=== PATIENT | male | born 1985 | race Caucasian/White ===

== ENCOUNTER 2016-11-14 14:53 | Emergency (ER) | payer SELFPAY ==
--- NOTE | 2016-11-14 15:31 | ED NURSING NOTES ---
Clinical Report - Nurses [facility] [address] [place] [address] 11/14/2016 14:57 Patient: LYNDA GRAY TRIAGE Triage time 15:Nov 14 2016. Acuity: LEVEL 5. Chief Complaint: RIGHT EAR PAIN and LEFT EAR PAIN and SINUS CONGESTION. --15:08 Demetrius February RPorterNPorter 15:06 11/14/16. BP: 120/74. HR: 96. RR: 16. O2 saturation: 97%. Temp: 98.6 F. Pain level now: 01/17. --15: Demetrius Sheree RSd. Weight: 77.1 kg stated. Height/Length: 70 inches Per Patient. BMI: 24.4. --15: Demetrius ShereeKenya. Medications None. --15: Demetrius ShereeKenya. Allergies No Known Drug Allergy. --15: Demetrius Sheree RSd. History Arrived by private vehicle. Historian: patient. Onset. (weeks). ( Had 1 day relief in the middle of all symptoms but still constant). SOCIAL HX: Current every day heavy tobacco smoker (cigarette)- less than 1 pack per day. Occasional alcohol use. History of drug use: marijuana. ABUSE ASSESSMENT: No report of abuse. --15: Demetrius Sheree RPorterN. ADDITIONAL SURGERIES: no known surgeries. Interventions ID band on patient. To treatment room. --15:08 Demetrius Sheree RPorterN. PHYSICAL ASSESSMENT Ambulatory to room. GENERAL / NEURO / PSYCH: Alert. Acute distress is noted. Appears in pain. HEENT: No facial asymmetry noted. Pupils equal, round and reactive to light. EOM intact. Erythema and pain upon movement of the right auricle; cerumen and cerumen impaction present in the right external auditory canal. Erythema and pain upon movement of the left auricle; cerumen present in the left external auditory canal. RESPIRATORY: Respirations not labored. CVS: Capillary refill less than 2 seconds. SKIN: Skin is warm and dry. --15:10 Sheree Romo R.N. NURSING PROGRESS NOTES Head of bed elevated. Reassurance given. Two patient identifiers checked. Call light placed in reach. Side rails up x 1. Bed placed in lowest position. Brakes of bed on. --15:10 Sheree Romo R.N. Patient ready for evaluation- ED physician notified. --15:11 Sheree Romo R.N. DISPOSITION / DISCHARGE Departure time: 1543 om. Condition at departure: unchanged and stable. No learning barriers present. Discharge instructions provided and reviewed with the patient. Reviewed medication(s). Patient verbalized understanding. Written instructions provided in Japanese. The patient was discharged home. He left the Emergency Department ambulatory and via private vehicle. Patient driving. --15:43 Sheree Romo R.N. 15:41 11/14/16. BP: 116/71. HR: 88. RR: 16. O2 saturation: 97%. Temp: 98.5 F. Pain level now: 03/19. --15:43 Sheree Romo R.N. Locked/Released at 11/14/2016 16:48 by Sheree Romo R.N.
--- NOTE | 2016-11-14 15:31 | ED NURSING NOTES ---
Clinical Report - Nurses [facility] [address] [place] [address] 11/14/2016 14:57 Patient: LYNDA GRAY TRIAGE Triage time 15:Nov 14 2016. Acuity: LEVEL 5. Chief Complaint: RIGHT EAR PAIN and LEFT EAR PAIN and SINUS CONGESTION. --15:08 Demetrius February RPorterNPorter 15:06 11/14/16. BP: 120/74. HR: 96. RR: 16. O2 saturation: 97%. Temp: 98.6 F. Pain level now: 01/17. --15: Demetrius Sheree RSd. Weight: 77.1 kg stated. Height/Length: 70 inches Per Patient. BMI: 24.4. --15: Demetrius ShereeKenya. Medications None. --15: Demetrius ShereeKenya. Allergies No Known Drug Allergy. --15: Demetrius Hseree RSd. History Arrived by private vehicle. Historian: patient. Onset. (weeks). ( Had 1 day relief in the middle of all symptoms but still constant). SOCIAL HX: Current every day heavy tobacco smoker (cigarette)- less than 1 pack per day. Occasional alcohol use. History of drug use: marijuana. ABUSE ASSESSMENT: No report of abuse. --15: Demetrius Sheree RPorterN. ADDITIONAL SURGERIES: no known surgeries. Interventions ID band on patient. To treatment room. --15:08 Demetrius Sheree RPorterN. PHYSICAL ASSESSMENT Ambulatory to room. GENERAL / NEURO / PSYCH: Alert. Acute distress is noted. Appears in pain. HEENT: No facial asymmetry noted. Pupils equal, round and reactive to light. EOM intact. Erythema and pain upon movement of the right auricle; cerumen and cerumen impaction present in the right external auditory canal. Erythema and pain upon movement of the left auricle; cerumen present in the left external auditory canal. RESPIRATORY: Respirations not labored. CVS: Capillary refill less than 2 seconds. SKIN: Skin is warm and dry. --15:10 Sheree Romo R.N. NURSING PROGRESS NOTES Head of bed elevated. Reassurance given. Two patient identifiers checked. Call light placed in reach. Side rails up x 1. Bed placed in lowest position. Brakes of bed on. --15:10 Sheree Romo R.N. Patient ready for evaluation- ED physician notified. --15:11 Sheree Romo R.N. DISPOSITION / DISCHARGE Departure time: 1543 om. Condition at departure: unchanged and stable. No learning barriers present. Discharge instructions provided and reviewed with the patient. Reviewed medication(s). Patient verbalized understanding. Written instructions provided in Mozambican. The patient was discharged home. He left the Emergency Department ambulatory and via private vehicle. Patient driving. --15:43 Sheree Romo R.N. 15:41 11/14/16. BP: 116/71. HR: 88. RR: 16. O2 saturation: 97%. Temp: 98.5 F. Pain level now: 03/19. --15:43 Sheree Romo R.N. Locked/Released at 11/14/2016 16:48 by Sheree Romo R.N.
--- NOTE | 2016-11-14 15:31 | ED CLINICAL REPORT ---
Clinical Report - Physicians/Mid Levels [facility] [address] [place] [address] 11/14/2016 14:57 Patient: LYNDA GRAY Time Seen: 15:07; upon arrival, initial patient contact, initial documentation, patient care assumed. Arrived- By private vehicle. Historian- patient. HISTORY OF PRESENT ILLNESS Chief Complaint: EARACHE. Modifying factors. Not worsened by anything. Not relieved by anything. This started about 2 weeks ago and is still present. Location- left ear. The pain is described as moderate. The patient has had moderate left ear pain. No nasal discharge or congestion, complaint of foreign body in the ear, ear trauma or recent barotrauma. No tinnitus or sore throat. (thought L ear was clogged with wax, so was cleaning it out with qtip). Similar symptoms previously: None. Recent medical care: Not recently seen/assessed. REVIEW OF SYSTEMS No fever. All systems otherwise negative, except as recorded above. PAST HISTORY Negative. SOCIAL HISTORY Heavy tobacco smoker. Occasional alcohol use. History of occasional drug use. Not exposed to second-hand smoke at home. No recent travel. Is a local resident. FAMILY HISTORY Negative. ADDITIONAL NOTES The nursing notes have been reviewed with agreement regarding the chief complaint, HPI, ROS, PMH and patient medications and allergies. PHYSICAL EXAM Vital Signs: 11/14/2016 15:06 BP: 120/74. HR: 96. RR: 16. O2 saturation: 97%. Temp: 98.6 F. Pain level now: 3/10. Have been reviewed as normal and appear to be correct. Appearance: Alert. No acute distress. Eyes: Eyes normal inspection. Nose: Nose normal. Ear (right): Right ear normal. Right tympanic membrane normal. Ear (left): There is mild erythema of the tympanic membrane. Left tympanic membrane abnormal. Left ear normal. Throat: Pharynx normal. Neck: Normal inspection. Neck supple. Back: Normal inspection. Skin: Skin warm and dry. Normal skin color. No rash. Normal skin turgor. Extremities: Extremities exhibit normal ROM. No lower extremity edema. Neuro: Oriented X 3. No motor deficit. No sensory deficit. PROGRESS AND PROCEDURES Patient counseled in person regarding the patient's stable condition and diagnosis. 15:31. Differential Diagnosis: Other possible considerations: aoe, aom, fb, cerumen impaction, perforated tm. Above considerations are based on history and physical exam. Differential diagnosis was discussed with patient. Disposition: Discharged home in good and improved condition (15:31). Condition: good and stable. CLINICAL IMPRESSION Acute suppurative left otitis media. No serous left otitis media. No perforation of left tympanic membrane. INSTRUCTIONS Warnings: GENERAL WARNINGS: Return or contact your physician immediately if your condition worsens or changes unexpectedly, if not improving as expected, or if other problems arise. Specifically return if problem worsens. Prescription Medications: Amoxicillin 500 mg tablets: Take 1 orally every 8 hours for 10 days. Dispense thirty (30). No refills. Follow-up: Follow up with your doctor in about five days even if well. Call for an appointment. Summary of care provided to patient. Understanding of the discharge instructions verbalized by patient. (Electronically signed by Jazmyn Lunsford A.R.N.P. 11/14/2016 16:10)
--- NOTE | 2016-11-14 16:48 | ED DISCHARGE INSTRUCTIONS ---
Patient: LYNDA GRAY General Instructions [facility] VisitID: [id number] [place] [address] 31y, M Registration Date/Time: 11/14/2016 Acute suppurative left otitis media. No serous left otitis media. No perforation of left tympanic membrane. INSTRUCTIONS Warnings: GENERAL WARNINGS: Return or contact your physician immediately if your condition worsens or changes unexpectedly, if not improving as expected, or if other problems arise. Specifically return if problem worsens. Prescription Medications: Amoxicillin 500 mg tablets: Take 1 orally every 8 hours for 10 days. Dispense thirty (30). No refills. Follow-up: Follow up with your doctor in about five days even if well. Call for an appointment. Summary of care provided to patient. Understanding of the discharge instructions verbalized by patient. ADDITIONAL INFORMATION Middle Ear Infection (Adult) You have an infection of the middle ear (the space behind the eardrum). It can occur as a result of the common cold. This is because congestion can block the internal passage (eustachian tube) that drains fluid from the middle ear. When the middle ear fills with fluid, bacteria can grow there and cause an infection. Oral antibiotics are used to treat this illness, not ear drops. Symptoms usually start to improve within 1-2 days of treatment. Home Care: Finish all of the antibiotic medicine prescribed, even though you may feel better after the first few days. You may use acetaminophen (Tylenol) or ibuprofen (Motrin, Advil) to control pain, unless something else was prescribed. [NOTE: If you have chronic liver or kidney disease or have ever had a stomach ulcer or GI bleeding, talk with your doctor before using these medicines.] (Do not give aspirin to anyone under 18 years of age who is ill with a fever. It may cause severe liver damage.) Follow Up with your doctor or this facility in two weeks if all symptoms have not cleared, or if hearing does not return to normal within one month. Get Prompt Medical Attention if any of the following occur: Ear pain gets worse or does not improve after three days of treatment Unusual drowsiness or confusion Neck pain, stiff neck or headache Fluid or blood draining from the ear canal Fever of 100.4F (38C) or higher after 3 days of antibiotics, or as directed by your healthcare provider Convulsion (seizure) Amoxicillin Trihydrate Oral tablet What is this medicine? AMOXICILLIN (a mox i DILAN in) is a penicillin antibiotic. It is used to treat certain kinds of bacterial infections. It will not work for colds, flu, or other viral infections. How should I use this medicine? Take this medicine by mouth with a glass of water. Follow the directions on your prescription label. You may take this medicine with food or on an empty stomach. Take your medicine at regular intervals. Do not take your medicine more often than directed. Take all of your medicine as directed even if you think your are better. Do not skip doses or stop your medicine early. Talk to your precision instrument maker regarding the use of this medicine in children. While this drug may be prescribed for selected conditions, precautions do apply. What side effects may I notice from receiving this medicine? Side effects that you should report to your doctor or health pet care associate as soon as possible: allergic reactions like skin rash, itching or hives, swelling of the face, lips, or tongue breathing problems dark urine redness, blistering, peeling or loosening of the skin, including inside the mouth seizures severe or watery diarrhea trouble passing urine or change in the amount of urine unusual bleeding or bruising unusually weak or tired yellowing of the eyes or skin Side effects that usually do not require medical attention (report to your doctor or health pet care associate if they continue or are bothersome): dizziness headache stomach upset trouble sleeping What may interact with this medicine? amiloride control pills chloramphenicol macrolides probenecid sulfonamides tetracyclines What if I miss a dose? If you miss a dose, take it as soon as you can. If it is almost time for your next dose, take only that dose. Do not take double or extra doses. Where should I keep my medicine? Keep out of the reach of children. Store between 68 and 77 degrees F (20 and 25 degrees C). Keep bottle closed tightly. Throw away any unused medicine after the expiration date. What should I tell my health care provider before I take this medicine? They need to know if you have any of these conditions: asthma kidney disease an unusual or allergic reaction to amoxicillin, other penicillins, cephalosporin antibiotics, other medicines, foods, dyes, or preservatives or trying to get breast-feeding What should I watch for while using this medicine? Tell your doctor or health pet care associate if your symptoms do not improve in 2 or 3 days. Take all of the doses of your medicine as directed. Do not skip doses or stop your medicine early. If you are diabetic, you may get a false positive result for sugar in your urine with certain brands of urine tests. Check with your doctor. Do not treat diarrhea with [id number] products. Contact your doctor if you have diarrhea that lasts more than 2 days or if the diarrhea is severe and watery. You have been given the following additional information: Otitis Media, Abx Tx (Adult) Amoxicillin Trihydrate Oral tablet (Electronically signed by Jazmyn Lunsford A.R.N.P. 11/14/2016 16:10)
--- NOTE | 2016-11-14 16:48 | ED MAR SUMMARY ---
..... Medication Administration Record [facility] [address] [place], [place] [id number] Patient: LYNDA GRAY Visit ID: [id number] 31y, M Weight: 77.1 kg Height/Length: 70 in BMI: 24.4 ALLERGIES: No Known Drug Allergy
--- NOTE | 2016-11-14 16:48 | ED MAR SUMMARY ---
..... Medication Administration Record [facility] [address] [place], [place] [id number] Patient: LYNDA GRAY Visit ID: [id number] 31y, M Weight: 77.1 kg Height/Length: 70 in BMI: 24.4 ALLERGIES: No Known Drug Allergy
--- NOTE | 2016-11-14 16:48 | ED MED RECONCILIATION SUMMARY ---
Patient: LYNDA GRAY Medication Reconciliation Report [facility] VisitID: [id number] [place] [address] 31y, M Registration Date/Time: 11/14/2016 Weight: 77.1 kg Height/Length: 70 in. BMI: 24.4 ALLERGIES: No Known Drug Allergy The patient's Home Medications are listed below: NONE. The source(s) of the original Home Medication information: Not obtained. The following Medications were given to the patient in the Emergency Department: None. The following Medications were prescribed to the patient: Amoxicillin 500 mg tablets: Take 1 orally every 8 hours for 10 days. Dispense thirty (30). No refills. -- Jazmyn Lunsford A.R.N.P.
--- NOTE | 2016-11-14 16:48 | ED MED RECONCILIATION SUMMARY ---
Patient: LYNDA GRAY Medication Reconciliation Report [facility] VisitID: [id number] [place] [address] 31y, M Registration Date/Time: 11/14/2016 Weight: 77.1 kg Height/Length: 70 in. BMI: 24.4 ALLERGIES: No Known Drug Allergy The patient's Home Medications are listed below: NONE. The source(s) of the original Home Medication information: Not obtained. The following Medications were given to the patient in the Emergency Department: None. The following Medications were prescribed to the patient: Amoxicillin 500 mg tablets: Take 1 orally every 8 hours for 10 days. Dispense thirty (30). No refills. -- Jazmyn Lunsford A.R.N.P.
--- NOTE | 2016-11-14 16:48 | ED DISCHARGE INSTRUCTIONS ---
Patient: LYNDA GRAY General Instructions [facility] VisitID: [id number] [place] [address] 31y, M Registration Date/Time: 11/14/2016 Acute suppurative left otitis media. No serous left otitis media. No perforation of left tympanic membrane. INSTRUCTIONS Warnings: GENERAL WARNINGS: Return or contact your physician immediately if your condition worsens or changes unexpectedly, if not improving as expected, or if other problems arise. Specifically return if problem worsens. Prescription Medications: Amoxicillin 500 mg tablets: Take 1 orally every 8 hours for 10 days. Dispense thirty (30). No refills. Follow-up: Follow up with your doctor in about five days even if well. Call for an appointment. Summary of care provided to patient. Understanding of the discharge instructions verbalized by patient. ADDITIONAL INFORMATION Middle Ear Infection (Adult) You have an infection of the middle ear (the space behind the eardrum). It can occur as a result of the common cold. This is because congestion can block the internal passage (eustachian tube) that drains fluid from the middle ear. When the middle ear fills with fluid, bacteria can grow there and cause an infection. Oral antibiotics are used to treat this illness, not ear drops. Symptoms usually start to improve within 1-2 days of treatment. Home Care: Finish all of the antibiotic medicine prescribed, even though you may feel better after the first few days. You may use acetaminophen (Tylenol) or ibuprofen (Motrin, Advil) to control pain, unless something else was prescribed. [NOTE: If you have chronic liver or kidney disease or have ever had a stomach ulcer or GI bleeding, talk with your doctor before using these medicines.] (Do not give aspirin to anyone under 18 years of age who is ill with a fever. It may cause severe liver damage.) Follow Up with your doctor or this facility in two weeks if all symptoms have not cleared, or if hearing does not return to normal within one month. Get Prompt Medical Attention if any of the following occur: Ear pain gets worse or does not improve after three days of treatment Unusual drowsiness or confusion Neck pain, stiff neck or headache Fluid or blood draining from the ear canal Fever of 100.4F (38C) or higher after 3 days of antibiotics, or as directed by your healthcare provider Convulsion (seizure) Amoxicillin Trihydrate Oral tablet What is this medicine? AMOXICILLIN (a mox i DILAN in) is a penicillin antibiotic. It is used to treat certain kinds of bacterial infections. It will not work for colds, flu, or other viral infections. How should I use this medicine? Take this medicine by mouth with a glass of water. Follow the directions on your prescription label. You may take this medicine with food or on an empty stomach. Take your medicine at regular intervals. Do not take your medicine more often than directed. Take all of your medicine as directed even if you think your are better. Do not skip doses or stop your medicine early. Talk to your national business director regarding the use of this medicine in children. While this drug may be prescribed for selected conditions, precautions do apply. What side effects may I notice from receiving this medicine? Side effects that you should report to your doctor or health critical care clinical nurse specialist as soon as possible: allergic reactions like skin rash, itching or hives, swelling of the face, lips, or tongue breathing problems dark urine redness, blistering, peeling or loosening of the skin, including inside the mouth seizures severe or watery diarrhea trouble passing urine or change in the amount of urine unusual bleeding or bruising unusually weak or tired yellowing of the eyes or skin Side effects that usually do not require medical attention (report to your doctor or health critical care clinical nurse specialist if they continue or are bothersome): dizziness headache stomach upset trouble sleeping What may interact with this medicine? amiloride control pills chloramphenicol macrolides probenecid sulfonamides tetracyclines What if I miss a dose? If you miss a dose, take it as soon as you can. If it is almost time for your next dose, take only that dose. Do not take double or extra doses. Where should I keep my medicine? Keep out of the reach of children. Store between 68 and 77 degrees F (20 and 25 degrees C). Keep bottle closed tightly. Throw away any unused medicine after the expiration date. What should I tell my health care provider before I take this medicine? They need to know if you have any of these conditions: asthma kidney disease an unusual or allergic reaction to amoxicillin, other penicillins, cephalosporin antibiotics, other medicines, foods, dyes, or preservatives or trying to get breast-feeding What should I watch for while using this medicine? Tell your doctor or health critical care clinical nurse specialist if your symptoms do not improve in 2 or 3 days. Take all of the doses of your medicine as directed. Do not skip doses or stop your medicine early. If you are diabetic, you may get a false positive result for sugar in your urine with certain brands of urine tests. Check with your doctor. Do not treat diarrhea with [id number] products. Contact your doctor if you have diarrhea that lasts more than 2 days or if the diarrhea is severe and watery. You have been given the following additional information: Otitis Media, Abx Tx (Adult) Amoxicillin Trihydrate Oral tablet (Electronically signed by Jazmyn Lunsford A.R.N.P. 11/14/2016 16:10)
== END 2016-11-14 15:45 | disposition home or self-care (01) ==
LOC: ED SRH 14:53
DX: H66.002 Acute suppurative otitis media without spontaneous rupture of ear drum, left ear (principal); F17.210 Nicotine dependence, cigarettes, uncomplicated